=== PATIENT | male | born 1990 | race Caucasian/White ===

== ENCOUNTER → 2025-06-16 | Outpatient (CLI) | payer OTHER | LOC: M OUTALCOH 07:33 | PROVIDERS: ATTEND Psychiatry & Neurology Psychiatry | DX: F10.20 Alcohol dependence, uncomplicated (principal); F12.10 Cannabis abuse, uncomplicated; F17.200 Nicotine dependence, unspecified, uncomplicated ==

== ENCOUNTER 2025-07-09 09:00 | Outpatient (RCR) | payer OTHER | END 2025-07-22 | LOC: M OUTALCOH 09:00 | PROVIDERS: ATTEND Psychiatry & Neurology Psychiatry | DX: F10.20 Alcohol dependence, uncomplicated (principal); F12.10 Cannabis abuse, uncomplicated; F17.200 Nicotine dependence, unspecified, uncomplicated ==